=== PATIENT | male | born 1955 | race Caucasian/White ===

== ENCOUNTER 2019-09-11 10:16 | Emergency (ER) | payer BC ==
[~2019-09-11] VITALS: Ht 188 cm; Wt 86.2 kg
--- OUTSIDE RECORDS SUMMARY | ~2019-09-11 | XMS | Encounter Summary ---
Demographics + + + | Address | [address] | | | [place] [address] | + + + | Home Phone | | + + + | Preferred Language | Unknown | + + + | Marital Status | Single | + + + | Taoism Affiliation | Unknown | + + + | Race | Unknown | + + + | Ethnic Group | Other Race | + + + Author + + + | Author | [facility] | + + + | Organization | [facility] | + + + | Address | Unknown | + + + | Phone | Unavailable | + + + Support + + +---------+ + | Name | Relationship | Address | Phone | + + +---------+ + | None None | ECON | Unknown | Unavailable | + + +---------+ + Care Team Providers + +------+ + | Care Appliance Repair Technician Name | Role | Phone | + +------+ + PCP | Unavailable | + +------+ + Encounter Details +--------+ + + + + | Date | Type | Department | Care Team | Description | +--------+ + + + + | 06/17/ | Hospital | Dermatopathology | | | | 2017 | Encounter | [address] | | | | | | Mailcode: [id number] | | | | | | [place] [facility] | | | | | | and Healing, | | | | | | [address] | | | | | | [place], [place] | | | | | | [address] | | | | | | [phone] | | | +--------+ + + + + Social History + +-------+ +--------+------+ | Tobacco Use | Types | Packs/Day | Years | Date | | | | | Used | | + +-------+ +--------+------+ | Never Assessed | | | | | + +-------+ +--------+------+ + + + | Sex Assigned at | Date Recorded | | | | + + + | Not on file | | + + + + + + + | Job Start Date | Occupation | Industry | + + + + | Not on file | Not on file | Not on file | + + + + + + + + | Travel History | Travel Start | Travel End | + + + + + + | No recent travel history available. | + + documented as of this encounter Plan of Treatment Not on filedocumented as of this encounter Procedures + +--------+ + + + | Procedure Name | Priori | Date/Time | Associated Diagnosis | Comments | | | ty | | | | + +--------+ + + + | DERM PATHOLOGY | Routin | 06/17/2017 | Melanocytic nevi | Results for this | | | e | | of trunk | procedure are in the | | | | | | results section. | + +--------+ + + + documented in this encounter Results DERM PATHOLOGY (06/17/2017) + + + + + + | Component | Value | Ref Range | Performed | Pathologist | | | | | At | Signature | + + + + + + | DERMATOPATH | SOURCE OF SPECIMEN:A Rt | | [facility] | | | OLOGY(WET | mid abdomen, shave | | DERMATOPATH | | | MNT) | biopsy CLINICAL | | OLOGY | | | | DESCRIPTION:5 x 3 mm | | | | | | dark brown ovoid macule; | | | | | | r/o atypical nevus. | | | | | | GROSS | | | | | | DESCRIPTION:Received in | | | | | | formalin is a specimen | | | | | | labeled Darin Cramer:A: | | | | | | Specimen is labeled "R | | | | | | mid abdomen" and | | | | | | consists of an irregular | | | | | | shaveof papular patchy | | | | | | qfpke-jcr-wecao-black | | | | | | skin, [id number]. The | | | | | | surgical marginis inked | | | | | | blue; the tissue is | | | | | | bisected, and entirely | | | | | | submitted in cassetteA1. | | | | | | MICROSCOPIC | | | | | | DESCRIPTION:There is a | | | | | | moderately broad, mostly | | | | | | well-circumscribed, | | | | | | predominantlyfunctional | | | | | | melanocytic neoplasm | | | | | | characterized by round | | | | | | to oval nests andsingle | | | | | | melanocytes distributed | | | | | | primarily along the | | | | | | basal layer. Most | | | | | | ofthe melanocytic nuclei | | | | | | are round to oval, and | | | | | | the cells contain | | | | | | amphophiliccytoplasm | | | | | | with melanin. | | | | | | DIAGNOSIS:MELANOCYTIC | | | | | | NEVUS, JUNCTIONAL TYPE. | | | | | | NOTE: The nevus | | | | | | appears to be excised in | | | | | | these sections. | | | | | | KPW:jb06/19/17 My | | | | | | electronic signature | | | | | | indicates that I have | | | | | | personally reviewed | | | | | | alldiagnostic slides, | | | | | | the gross and/or | | | | | | microscopic portion of | | | | | | thisreport and | | | | | | formulated the final | | | | | | diagnosis. | | | | | | Rendering Diagnostician: | | | | | | Harlan Fontanez | | | | | | PatricaPathologistElectroni | | | | | | levy Signed 06/19/2017 | | | | | | 6:05PM | | | | + + + + + + + + | Specimen | + + | | + + + + + | Narrative | Performed At | + + + | | | + + + + + + + + | Performing | Address | City/State/Zipcode | Phone Number | | Organization | | | | + + + + + | [facility] | [address] | [place] [address] | | | DERMATOPATHOLOGY | [address] | | | + + + + + documented in this encounter Visit Diagnoses + + | Diagnosis | + + | Melanocytic nevi of trunk Benign neoplasm of skin of trunk, except scrotum | + + documented in this encounter
--- OUTSIDE RECORDS SUMMARY | ~2019-09-11 | XMS | Encounter Summary ---
Demographics + + + | Address | [address] | | | [place] [address] | + + + | Home Phone | | + + + | Preferred Language | Unknown | + + + | Marital Status | Single | + + + | Yazidism Affiliation | Unknown | + + + | Race | Unknown | + + + | Ethnic Group | Other Race | + + + Author + + + | Author | [facility] | + + + | Organization | [facility] | + + + | Address | Unknown | + + + | Phone | Unavailable | + + + Support + + +---------+ + | Name | Relationship | Address | Phone | + + +---------+ + | None None | ECON | Unknown | Unavailable | + + +---------+ + Care Team Providers + +------+ + | Care Rug Frame Mounter Name | Role | Phone | + +------+ + PCP | Unavailable | + +------+ + Encounter Details +--------+ + + + + | Date | Type | Department | Care Team | Description | +--------+ + + + + | 10/31/ | Ancillary | [facility] | | | | 2007 | Registratio | Practice [address] | | | | | n | [facility] | | | | | | [place] [address] | | | | | | [phone] | | | +--------+ + + + [...] Not on filedocumented as of this encounter Visit Diagnoses Not on filedocumented in this encounter"
--- OUTSIDE RECORDS SUMMARY | ~2019-09-11 | XMS | Encounter Summary ---
Demographics + + + | Address | [address] | | | [place] [address] | + + + | Home Phone | | + + + | Preferred Language | Unknown | + + + | Marital Status | Single | + + + | Episcopalian Affiliation | Unknown | + + + | Race | Unknown | + + + | Ethnic Group | Other Race | + + + Author + + + | Author | [facility] | + + + | Organization | [facility] | + + + | Address | Unknown | + + + | Phone | Unavailable | + + + Support + + +---------+ + | Name | Relationship | Address | Phone | + + +---------+ + | None None | ECON | Unknown | Unavailable | + + +---------+ + Care Team Providers + +------+ + | Care Pillowcase Maker Name | Role | Phone | + +------+ + PCP | Unavailable | + +------+ + Encounter Details +--------+ + + + + | Date | Type | Department | Care Team | Description | +--------+ + + + + | 10/20/ | Results | Registration [id number] | Other, Faculty | | | 2007 | Only | [address] | [phone] | | | | | Rd Mailcode: [address] | | | | | | [place], [place] | | | | | | [address] | | | | | | [phone] | | | +--------+ + + + [...] | + +--------+ + + + | DERMATOPATHOLOGY(WET | Routin | 11/12/2007 | | Results for this | | [facility]) | e | | | procedure are in the | | | | | | results section. | + +--------+ + + + | DERMATOPATHOLOGY(CON | Routin | 10/20/2007 | | Results for this | | SULT) | e | | | procedure are in the | | | | | | results section. | + +--------+ + + + documented in this encounter Results DERMATOPATHOLOGY(WET [facility]) (11/12/2007) + + + + + + | Component | Value | Ref Range | Performed | Pathologist | | | | | At | Signature | + + + + + + | DERMATOPATH | SOURCE OF SPECIMEN:A | | | | | OLOGY(WET | FIRST TISSUE LEVEL IV | | | | | MNT) | [id number] CLINICAL | | | | | | DESCRIPTION:Excision, | | | | | | rt. abdomen; | | | | | | reddish-brown hirsute | | | | | | papule- traumatized | | | | | | duringrecent vacation; | | | | | | atypical compound | | | | | | melanocytic nevus. GROSS | | | | | | DESCRIPTION:Rt. | | | | | | abdomen, ellipse 1.6 x | | | | | | 0.7 x 0.6 cm, suture at | | | | | | one end, no | | | | | | designationgiven. | | | | | | Suture placed at | | | | | | 12:00. 12:00-6:00 | | | | | | inked black, 6:00-12:00 | | | | | | inkedgreen. Six | | | | | | segments. MICROSCOPIC | | | | | | DESCRIPTION:There is a | | | | | | scar in the upper dermis | | | | | | deep to which are cords | | | | | | and strands | | | | | | ofmelanocytes with small | | | | | | uniform nuclei filling | | | | | | the papillary dermis | | | | | | andextending to the mid | | | | | | reticular dermis. | | | | | | There is also an | | | | | | occasional nest | | | | | | ofmelanocytes along the | | | | | | epidermal basal layer. | | | | | | DIAGNOSIS:RESIDUAL | | | | | | MELANOCYTIC NEVUS, | | | | | | COMPOUND TYPE WITH | | | | | | SCAR.NOTE: In this | | | | | | excisional specimen, the | | | | | | findings are consonant | | | | | | with COMPOUNDNEVUS which | | | | | | appears to be | | | | | | completely excised. | | | | | | SILVER/jyi11/19/07Rendering | | | | | | Diagnostician: Kavin | | | | | | Nneka Fontanez Jr., | | | | | | Bei | | | | | | levy Signed 11/20/2007 | | | | + + + + + + + + | Specimen | + + | | + + + + + | Narrative | Performed At | + + + | Ordered by Jesus Newton | | + + + + + + + + | Performing | Address | City/State/Zipcode | Phone Number | | Organization | | | | + + + + + | [facility] | [address], [address] | [place] [address] | | | DERMATOPATHOLOGY | [address] | | | + + + + + DERMATOPATHOLOGY(CONSULT) (10/20/2007) + + + + + + | Component | Value | Ref Range | Performed | Pathologist | | | | | At | Signature | + + + + + + | DERMATOPATH | SOURCE OF SPECIMEN:A | | | | | (CONSULT) | CONSULTATION CLINICAL | | | | | | DESCRIPTION:Rt Aubrey. | | | | | | abdomen; banal appearing | | | | | | pigmented papule; | | | | | | ?nevus with | | | | | | atypicalfeatures vs | | | | | | melanoma Dear | | | | | | Je: Thank you | | | | | | for asking me to review | | | | | | Darin Cramer' right | | | | | | abdomen biopsy.As you | | | | | | described, there is a | | | | | | small papule containing | | | | | | a melanocytic | | | | | | neoplasmwhich is not | | | | | | entirely symmetrical. | | | | | | A few small nests as | | | | | | well as | | | | | | singlemelanocytes are | | | | | | present irregularly | | | | | | along the epidermal | | | | | | basal layer | | | | | | withoccasional | | | | | | melanocytes involving | | | | | | the spinous, granular | | | | | | and cornifiedlayers. | | | | | | The epidermal | | | | | | melanocytic nuclei are | | | | | | small to moderately | | | | | | large,some are mildly | | | | | | pleomorphic and many of | | | | | | the cells have abundant | | | | | | palestaining cytoplasm | | | | | | containing melanin, some | | | | | | of them with | | | | | | prominentdendrites. | | | | | | There is papillary | | | | | | fibrosis focally beneath | | | | | | the atypicalepidermal | | | | | | melanocytic | | | | | | proliferation. | | | | | | Finally, numerous | | | | | | cords and strandsof | | | | | | melanocytes with small, | | | | | | uniform nuclei fill the | | | | | | remainder of | | | | | | thepapillary dermis and | | | | | | extend to the specimen | | | | | | base. | | | | | | DIAGNOSIS:MELANOCYTIC | | | | | | NEVUS, COMPOUND TYPE | | | | | | WITH ATYPICAL FEATURES. | | | | | | The findings suggest a | | | | | | traumatized nevus | | | | | | resulting in fibrosis | | | | | | andrecurrent nevus | | | | | | change within the | | | | | | epidermis. Melanoma in | | | | | | situ evolvingwithin a | | | | | | pre-existing nevus is | | | | | | unlikely, given the | | | | | | confinement of | | | | | | theatypical melanocytic | | | | | | proliferation to the | | | | | | epidermis overlying the | | | | | | scarwithout lateral | | | | | | extension beyond it. | | | | | | Nonetheless, given the | | | | | | unconventionalfindings | | | | | | and extension of the | | | | | | neoplasm to the dermal | | | | | | surgical | | | | | | margins,additional | | | | | | treatment to insure its | | | | | | complete removal would | | | | | | be prudent. Thank you | | | | | | for referring this | | | | | | consultation.1 slide, | | | | | | returned to | | | | | | Je. | | | | | | CRW:mm10/28/07Rendering | | | | | | Diagnostician: Kavin | | | | | | Nneka Fontanez Jr., | | | | | | PatricaPathologistMarizai | | | | | | levy Signed 10/28/2007 | | | | + + + + + + + + | Specimen | + + | | + + + + + | Narrative | Performed At | + + + | Cathy Simons MD | | + + + + + + + + | Performing | Address | City/State/Zipcode | Phone Number | | Organization | | | | + + + + + | [facility] | [address], [address] | [place] [address] | | | DERMATOPATHOLOGY | [address] | | | + + + + + documented in this encounter Visit Diagnoses Not on filedocumented in this encounter"
--- OUTSIDE RECORDS SUMMARY | ~2019-09-11 | XMS | Encounter Summary ---
Demographics + + + | Address | [address] | | | [place] [address] | + + + | Home Phone | | + + + | Preferred Language | Unknown | + + + | Marital Status | | + + + | Mandaen Affiliation | Unknown | + + + | Race | Unknown | + + + | Ethnic Group | Unknown | + + + Author + + + | Author | [facility] | | | and [place] | + + + | Organization | [facility] | | | and [place] | + + + | Address | Unknown | + + + | Phone | Unavailable | + + + Support + + +---------+ + | Name | Relationship | Address | Phone | + + +---------+ + | Donadl Cramer | ECON | Unknown | | + + +---------+ + | Brenda Marx | ECON | Unknown | | + + +---------+ + Care Team Providers + +------+ + | Care Shrub Grower Name | Role | Phone | + +------+ + | Dagoberto Villeda MD | PCP | | + +------+ + Encounter Details +--------+ + + + + | Date | Type | Department | Care Team | Description | +--------+ + + + + | 03/23/ | Abstract | [facility] | Hank Reid MD | | | 2014 | | NEUROSURGERY [address] | [address] | | | | | [address] | [place] [address] | | | | | [place], [place] | [phone] | | | | | [address] | | | | | | [phone] | | | +--------+ + + + + Social History + +-------+ +--------+------+ | Tobacco Use | Types | Packs/Day | Years | Date | | | | | Used | | + +-------+ +--------+------+ | Never Smoker | | | | | + +-------+ +--------+------+ + +---+---+---+ | Smokeless Tobacco: | | | | | Never Used | | | | + +---+---+---+ + + +---------+ + | Alcohol Use | Drinks/Week | oz/Week | Comments | + + +---------+ + | Yes | 0 Standard drinks | 0.0 | | | | or equivalent | | | + + +---------+ + + + + | Sex Assigned at [...]
--- OUTSIDE RECORDS SUMMARY | ~2019-09-11 | XMS | Encounter Summary ---
Demographics + + + | Address | [address] | | | [place] [address] | + + + | Home Phone | | + + + | Preferred Language | Unknown | + + + | Marital Status | Single | + + + | Jain Affiliation | Unknown | + + + | Race | Unknown | + + + | Ethnic Group | Other Race | + + + Author + + + | Author | [facility] | + + + | Organization | [facility] | + + + | Address | Unknown | + + + | Phone | Unavailable | + + + Support + + +---------+ + | Name | Relationship | Address | Phone | + + +---------+ + | None None | ECON | Unknown | Unavailable | + + +---------+ + Care Team Providers + +------+ + | Care Senior Bookkeeper Name | Role | Phone | + +------+ + PCP | Unavailable | + +------+ + Encounter Details +--------+ + + + + | Date | Type | Department | Care Team | Description | +--------+ + + + + | 03/19/ | Documentati | NON-[facility] | Unknown . | | | 2019 | on | Department | | | +--------+ + + + [...]
--- OUTSIDE RECORDS SUMMARY | ~2019-09-11 | XMS | Encounter Summary ---
Demographics + + + | Address | [address] | | | [place] [address] | + + + | Home Phone | | + + + | Preferred Language | Unknown | + + + | Marital Status | | + + + | Church Affiliation | Unknown | + + + | Race | Unknown | + + + | Ethnic Group | Unknown | + + + Author + + + | Author | [facility] | | | and [place] | + + + | Organization | [facility] | | | and [place] | + + + | Address | Unknown | + + + | Phone | Unavailable | + + + Support + + +---------+ + | Name | Relationship | Address | Phone | + + +---------+ + | Donald Cramer | ECON | Unknown | | + + +---------+ + | Brenda Vega ECON | Unknown | | + + +---------+ + Care Team Providers + +------+ + | Care Recoating Machine Operator Name | Role | Phone | + +------+ + | Dagoberto Villeda MD | PCP | | + +------+ + Reason for Referral Evaluate & Treat (Routine) +--------+ + + + + + | Status | Reason | Specialty | Diagnoses / | Referred By | Referred To | | | | | Procedures | Contact | Contact | +--------+ + + + + + | Closed | Specialty | Physical | Diagnoses | Hank Reid | | | | Services | Therapy | Lumbar | MD [address] | | | | Required | | scoliosis | [address] | | | | | | Degenerative | [place], | | | | | | disc | [place] [address] | | | | | | disease, | Phone: | | | | | | lumbar S/P | [phone] | | | | | | lumbar | Fax: | | | | | | laminectomy | [phone] | | | | | | Facet | | | | | | | arthropathy, | | | | | | | lumbar | | | | | | | Foraminal | | | | | | | stenosis of | | | | | | | lumbar | | | | | | | region | | | +--------+ + + + + + + + | Scheduling Instructions | + + | [facility] in [place] | + + Reason for Visit + + + | Reason | Comments | + + + | New Patient | Back Pain | + + + Evaluate & Treat (Routine) +--------+--------+ + + + + | Status | Reason | Specialty | Diagnoses / | Referred By | Referred To | | | | | Procedures | Contact | Contact | +--------+--------+ + + + + | Closed | | Neurosurgery | Diagnoses | [place], | Hank Reid | | | | | Low back | Dagoberto | MD [address] | | | | | pain | MD [address] | | | | | Procedures | [address] | [place], [place] | | | | | [place] OFFICE | [address] | [address] | | | | | CONSULTATION | [place], | Phone: | | | | | NEW/ESTAB | [place] | [phone] | | | | | PATIENT 61 | [address] | Fax: | | | | | MIN | Phone: | [phone] | | | | | | [phone] | | | | | | | Fax: | | | | | | | [phone] | | +--------+--------+ + + + + Encounter Details +--------+---------+ + + + | Date | Type | Department | Care Team | Description | +--------+---------+ + + + | 04/22/ | Office | [facility] | Hank Reid MD | Lumbar scoliosis | | 2015 | Visit | NEUROSURGERY [address] | [address] | (Primary Dx); | | | | [address] | [place] [address] | Degenerative disc | | | | [place] | [phone] | disease, lumbar; S/P | | | | [address] | | lumbar laminectomy; | | | | [phone] | | Facet arthropathy, | | | | | | lumbar; Foraminal | | | | | | stenosis of lumbar | | | | | | region | +--------+---------+ + + + Social History + +-------+ [...] | 0 Standard drinks | 0.0 | Occasionally | | | or equivalent | | [...] + + documented as of this encounter Last Filed Vital Signs + + + + + | Vital Sign | Reading | Time Taken | Comments | + + + + + | Blood Pressure | 115/69 | 04/22/2015 9:44 AM | | | | | PDT | | + + + + + | Pulse | 71 | 04/22/2015 9:44 AM | | | | | PDT | | + + + + + | Temperature | - | - | | + + + + + | Respiratory Rate | 16 | 04/22/2015 9:44 AM | | | | | PDT | | + + + + + | Oxygen Saturation | - | - | | + + + + + | Inhaled Oxygen | - | - | | | Concentration | | | | + + + + + | Weight | 83.9 kg (185 lb) | 04/22/2015 9:44 AM | | | | | PDT | | + + + + + | Height | 188 cm (6' 2") | 04/22/2015 9:44 AM | | | | | PDT | | + + + + + | Body Mass Index | 23.75 | 04/22/2015 9:44 AM | | | | | PDT | | + + + + + documented in this encounter Progress Notes aHnk Ried MD - 04/22/2015 9:53 AM PDTFormatting of this note might be different from vishal reyes. Hank Reid MD [address] [place] [address], [address] [place] [address] FAX: NEUROSURGERY HISTORY AND PHYSICAL EXAMINATION CHIEF COMPLAINT: Chief Complaint Patient presents with New Patient Back Pain HISTORY OF PRESENT ILLNESS: The patient is a 59 y.o. male with the complaint of back sympt oms that began years prior. The patient has a history of prior laminectomy [address] Parks for a disc herniation He did well for many years but has noticed increasing breanna k pain without radiculopathy. The symptoms have been gradually worsening. The past year lowe s been the worst. He has 5-10 days a month with 7-8 / 10 back pain. It is in the lowest po rtion of his back. He rates the pain as none today. The symptoms are intermittent, frequent. He describes th e pain as aching, sharp and throbbing. He has no leg numbness or pain. The patient does not report any change in bowel or bladder function recently. His symptoms improve with rest. His symptoms worsen with strenuous exertion. He has tried self directed PT and inversion. PAST MEDICAL HISTORY: Past Medical History Diagnosis Date Medical history reviewed with no changes Reviewed 04/22/15 cdm PAST SURGICAL HISTORY: Past Surgical History Procedure Laterality Date Ankle surgery Right a long time ago CURRENT MEDICATIONS: Current Outpatient Prescriptions Medication Sig Dispense Refill meloxicam (MOBIC) 7.5 mg tablet Take 1 tablet by mouth Twice daily as needed for Pain. 60 tablet 3 No current facility-administered medications for this visit. ALLERGIES: No Known Allergies SOCIAL HISTORY: The patient reports that he has never smoked. He has never used smokeless tobacco. He repo rts that he drinks alcohol. He reports that he does not use illicit drugs. FAMILY HISTORY: Family History Problem Relation Age of Onset Diabetes Father Cancer Mother Heart disease Mother REVIEW OF SYSTEMS GENERALLY: No fever, no night sweats, no anemia, no fatigue, no recent profound weight ch anges. EYES: No eye problems, + use of corrective lenses, no eye injury, no double vision, no bli ndness. EARS, NOSE, AND THROAT: No changes in taste or smell, no hearing difficulty, no ringing in the ears, no ear drainage, no dizziness, no voice changes, no difficulty swallowing, no sig nificant snoring, no sleep apnea, no sinus problems, no major dental work. NEUROLOGICALLY: Please see the review of systems discussed above in the history of present illness. In addition, the patient has numbness/pain of legs, headaches. PSYCHIATRIC: No depression, no sleep disorders, no anxiety, no bipolar disorder, no psycho tic episodes. CARDIOVASCULAR: No heart attacks, no heart murmur, no heart fluttering, no chest pain, no ankle swelling. LUNG DISEASE: No shortness of breath, no cough, no tuberculosis, no bloody cough, no asth ma, no emphysema/COPD. GASTROINTESTINAL: No bowel disease, no nausea or vomiting, no rectal bleeding, no constipa tion, no stool incontinence, no liver disease, no gallbladder disease, no abdominal pain, no ulcers. KIDNEY DISEASE: No urinary frequency, no painful or difficult urination, no incontinence. ENDOCRINE: No diabetes, no thyroid disease, no osteopenia or osteoporosis, no breast drain age. SKIN: No breast lumps, no skin changes, no rashes, no itches. HEMATOLOGIC/LYMPHATIC: No enlarged lymph nodes, no easy or unusual bleeding, no personal h istory of cancer. RHEUMATOLOGIC: No joint arthritis, no rheumatoid arthritis. PHYSICAL EXAMINATION: Blood pressure 115/69, pulse 71, resp. rate 16, height 1.88 m (6' 2"), weight 83.915 kg (18 5 lb). Body mass index is 23.74 kg/(m^2). GENERAL: Darin Cramer is in no acute distress with unlabored respirations. The patient does not appear uncomfortable throughout the exam today. HEENT: HEAD/FACE: EYES: EARS: NASOPHARNYX: OROPHARNYX: Normocephalic and atraumatic. There are no areas of recent trauma. Normal sclerae without icterus. No drainage or tenderness. Clear without drainage. Clear without erythema. NECK (ANTERIOR): Supple and without palpable masses. CHEST: Clear to ausculation without crackles or wheeze. HEART: Regular rate and rhythm without murmurs. ABDOMEN: Soft, non-tender, non-distended, and without palpable masses. The patient is notob dominik. SPINE: There is no tenderness in the midline of the cervical or thoracic spine. There is m ajor palpable deformity of the spine. The lumbar spine shows there is no tenderness in the midline of the L1, L2, L3, L4, L5, S1 levels. He has a small midline scar. EXTREMITIES: No cyanosis, clubbing, or edema. Distal pulses are palpable. NEUROLOGICAL EXAM: MENTAL STATUS: The patient is awake, alert, and oriented. He follows simple and complex commands. His speech is fluent, he comprehends speech well, and he repeats well. He has no apparent deficits with short or terminal makeup operator memory. CRANIAL NERVES: II: Acuity is intact. Desai are full to confrontation. III, IV, : The pupils are reactive. Extraocular movements are intact. No ptosis is note d. V: Facial sensation is intact and symmetric. VII: Facial movements are symmetric. VIII: Hearing is intact bilaterally. IX, X: The uvula and palate move appropriately. XI: Shrug is equal bilaterally. XII: Tongue protrusion is midline. MOTOR EXAM: (5 IS NORMAL) * Indicates pain limited MUSCLE/ MOVEMENT: RIGHT LEFT Deltoids 5 5 Biceps 5 5 Triceps 5 5 Wrist Flexion 5 5 Wrist Extension 5 5 Median Intrinsics 5 5 Ulnar Intrinsics 5 5 Damascener Strength 5 5 Hip Flexion 5 5 Hip Extension 5 5 Knee Flexion 5 5 Knee Extension 5 5 Dorsiflexion 5 5 Extensor Hallicus Longus 5 5 Plantarflexion 5 5 SENSORY EXAM: Sensory exam shows no diminished sensation to light touch or pain throughout the upper and lower extremities. REFLEXES: (2 OR 2+ IS NORMAL) REFLEX: RIGHT LEFT BICEPS 2 2 BRACHIORADIALIS 2 2 TRICEPS 2 2 PATELLAR 2 2 ACHILLES 2 1 ROMERO'S ABSENT ABSENT PLANTAR DOWNGOING DOWNGOING GAIT: Gait is steady. RADIOGRAPHIC REVIEW: The patient's imaging was reviewed in detail with the patient today during the visit. The MRI from 2014 shows L1-S1 DDD and spondylosis with scoliosis and facet arthropathy. His wor st segment is L5-S1. Lumbar x-rays show scoliosis without a major instability. ASSESSMENT: NEUROSURGICAL DIAGNOSES: Encounter Diagnoses Name Primary? Lumbar scoliosis Yes Degenerative disc disease, lumbar S/P lumbar laminectomy Facet arthropathy, lumbar Foraminal stenosis of lumbar region GENERAL DIAGNOSES: Past Medical History Diagnosis Date Medical history reviewed with no changes Reviewed 04/22/15 [facility] PLAN: Darin Cramer presented today, and it was a pleasure seeing this patient and assessing h is problems. The patient has back pain intermittently that has been increasing. The pain c an be very intense. I had a lengthy discussion with the patient about his options for care including surgical a nd non-surgical options. I recommended he increase his non-operative care interventions wit h PT and NSAIDS. If it continued to worsen, I would advise a L5-S1 facet injection bilaterally. If he remained refractory, I would hope to be able to do a focused surgery. ELECTRONICALLY SIGNED BY: Hank Reid MD, 04/22/2015 10:48 documented in this encou nter Plan of Treatment + + +--------+ + + | Name | Type | Priori | Associated Diagnoses | Order Schedule | | | | ty | | | + + +--------+ + + | OUTPATIENT PT | Outpatient | Routin | Lumbar scoliosis | Ordered: 04/22/2015 | | EXTERNAL | Referral | e | Degenerative disc | | | | | | disease, lumbar S/P | | | | | | lumbar laminectomy | | | | | | Facet arthropathy, | | | | | | lumbar Foraminal | | | | | | stenosis of lumbar | | | | | | region | | + + +--------+ + + documented as of this encounter Visit Diagnoses + + | Diagnosis | + + | Lumbar scoliosis - Primary Scoliosis (and kyphoscoliosis), idiopathic | + + | Degenerative disc disease, lumbar Degeneration of lumbar or lumbosacral | | intervertebral disc | + + | S/P lumbar laminectomy | + + | Facet arthropathy, lumbar Lumbosacral spondylosis without myelopathy | + + | Foraminal stenosis of lumbar region Spinal stenosis, lumbar region, without | | neurogenic claudication | + + documented in this encounter
--- OUTSIDE RECORDS SUMMARY | ~2019-09-11 | XMS | Encounter Summary ---
Demographics + + + | Address | [address] | | | [place] [address] | + + + | Home Phone | | + + + | Preferred Language | Unknown | + + + | Marital Status | Single | + + + | Zoroastrianism Affiliation | Unknown | + + + | Race | Unknown | + + + | Ethnic Group | Other Race | + + + Author + + + | Author | [facility] | + + + | Organization | [facility] | + + + | Address | Unknown | + + + | Phone | Unavailable | + + + Support + + +---------+ + | Name | Relationship | Address | Phone | + + +---------+ + | None None | ECON | Unknown | Unavailable | + + +---------+ + Care Team Providers + +------+ + | Care Civil Engineering Intern Name | Role | Phone | + [...]
--- OUTSIDE RECORDS SUMMARY | ~2019-09-11 | XMS | Encounter Summary ---
Demographics + + + | Address | [address] | | | [place] [address] | + + + | Home Phone | | + + + | Preferred Language | Unknown | + + + | Marital Status | Single | + + + | Hoahaoism Affiliation | Unknown | + + + | Race | Unknown | + + + | Ethnic Group | Other Race | + + + Author + + + | Author | [facility] | + + + | Organization | [facility] | + + + | Address | Unknown | + + + | Phone | Unavailable | + + + Support + + +---------+ + | Name | Relationship | Address | Phone | + + +---------+ + | None None | ECON | Unknown | Unavailable | + + +---------+ + Care Team Providers + +------+ + | Care Water Proofer Name | Role | Phone | + +------+ + PCP | Unavailable | + +------+ + Encounter Details +--------+ + + + + | Date | Type | Department | Care Team | Description | +--------+ + + + + | 11/25/ | Ancillary | [facility] | | | | 2007 | Registratio | Practice [address] | | | | | n | [facility] | | | | | | [place] [address] | | | | | | [phone] | | | +--------+ + + + [...]
--- OUTSIDE RECORDS SUMMARY | ~2019-09-11 | XMS | Clinical Summary ---
Demographics + + + | Address | [address] | | | [place] [address] | + + + | Home Phone | | + + + | Preferred Language | Unknown | + + + | Marital Status | Single | + + + | Jewish Affiliation | Unknown | + + + | Race | Unknown | + + + | Ethnic Group | Other Race | + + + Author + + + | Author | [facility] | + + + | Organization | [facility] | + + + | Address | Unknown | + + + | Phone | Unavailable | + + + Support + + +---------+ + | Name | Relationship | Address | Phone | + + +---------+ + | None None | ECON | Unknown | Unavailable | + + +---------+ + Care Team Providers + +------+ + | Care Crystal Inspector Name | Role | Phone | + +------+ + PCP | Unavailable | + +------+ + Source Comments EDSON is fully live on both [facility] and [facility]Patient.[facility] Allergies Not on File Medications Not on file Active Problems Not on file Social History + +-------+ +--------+------+ | Tobacco [...] recent travel history available. | + + Last Filed Vital Signs Not on file Plan of Treatment + + + + + | Health Maintenance | Due Date | Last Done | Comments | + + + + + | Influenza (Flu) | | | | | vaccination (#1) | 9 | | | + + + + + | Pneumococcal | Aged Out | | No longer eligible | | vaccination | | | based on patient's | | | | | age to complete this | | | | | topic | + + + + + Results Not on filefrom Last 3 Months Insurance + +--------+ +--------+ + +------+ | Payer | Benefi | Subscriber | Effect | Phone | Address | Type | | | t Plan | ID | michael | | | | | | / | | Dates | | | | | | Group | | | | | | + +--------+ +--------+ + +------+ | [place] | BLUE | [phone] | Effect | [phone] | [address] | PPO | | | CROSS | | michael | 8 | [address] | | | | [place] | | for | | [place], | | | | L | | all | | [place] [address] | | | | | | dates | | | | + +--------+ +--------+ + +------+ + +--------+ +--------+ + + | Guarantor Name | Accoun | Relation to | Date | Phone | Billing Address | | | t Type | Patient | of | | | | | | | | | | + +--------+ +--------+ + + | Darin Cramer | Person | Self [birth year] | [address] | | | al/Fam | | 1955 | [phone] | [place] [address] | | | rosa | | | 2 (Home) | | + +--------+ +--------+ + +"
--- OUTSIDE RECORDS SUMMARY | ~2019-09-11 | XMS | Encounter Summary ---
Demographics + + + | Address | [address] | | | [place] [address] | + + + | Home Phone | | + + + | Preferred Language | Unknown | + + + | Marital Status | Single | + + + | Presybeterian Affiliation | Unknown | + + + | Race | Unknown | + + + | Ethnic Group | Other Race | + + + Author + + + | Author | [facility] | + + + | Organization | [facility] | + + + | Address | Unknown | + + + | Phone | Unavailable | + + + Support + + +---------+ + | Name | Relationship | Address | Phone | + + +---------+ + | None None | ECON | Unknown | Unavailable | + + +---------+ + Care Team Providers + +------+ + | Care Roll Up Guider Operator Name | Role | Phone | + +------+ + PCP | Unavailable | + +------+ + Encounter Details +--------+ + + + + | Date | Type | Department | Care Team | Description | +--------+ + + + + | 10/31/ | Ancillary | [facility] | | | | 2007 | Registratio | Practice [address] | | | | | n | [facility] | | | | | | [place] [address] | | | | | | [phone] | | | +--------+ + + + [...]
--- OUTSIDE RECORDS SUMMARY | ~2019-09-11 | XMS | Encounter Summary ---
Demographics + + + | Address | [address] | | | [place] [address] | + + + | Home Phone | | + + + | Preferred Language | Unknown | + + + | Marital Status | | + + + | [facility] Affiliation | Unknown | + + + | Race | Unknown | + + + | Ethnic Group | Unknown | + + + Author + + + | Author | [facility] | | | and [place] | + + + | Organization | [facility] | | | [...] Team Providers + +------+ + | Care School Age Program Associate Name | Role | Phone | + +------+ + | Dagoberto Villeda MD | PCP | | + +------+ + Encounter Details +--------+ + + + + | Date | Type | Department | Care Team | Description | +--------+ + + + + | 04/22/ | Hospital | [facility] | Hank Reid MD | Back pain, | | 2015 | Encounter | MED CTR XRAY [address] | unspecified location | | | | [place] | [place] [address] | | | | | [place] [address] | [phone] | | | | | [phone] | | | +--------+ + + + [...] + + documented as of this encounter Medications at Time of Discharge + + + +---------+ + + | Medication | Sig | Dispensed | Refills | Start | End Date | | | | | | Date | | + + + +---------+ + + | meloxicam (MOBIC) | Take 1 tablet by | 60 | 3 | 04/22/20 | | | 7.5 mg tablet | mouth Twice daily | tablet | | 15 | | | | as needed for Pain. | | | | | + + + +---------+ + + documented as of this encounter Plan of Treatment Not on filedocumented as of this encounter Procedures + +--------+ + + + | Procedure Name | Priori | Date/Time | Associated Diagnosis | Comments | | | ty | | | | + +--------+ + + + | XR LUMBAR SPINE 4 + | Routin | 04/22/2015 | Back pain, | Results for this | | VW | e | 8:19 AM | unspecified location | procedure are in the | | | | PDT | | results section. | + +--------+ + + + documented in this encounter Results XR Lumbar Spine 4 + Vw (04/22/2015 8:19 AM PDT) + + | Specimen | + + | | + + + + + | Narrative | Performed At | + + + | EXAM: XR LUMBAR SPINE 4 + VW dated 04/22/2015 8:00 AM | [facility] | | HISTORY:Back pain COMPARISON: Outside MRI from January 18, 2015. | [facility] | | FINDINGS:4 views of the lumbar spine. Dextroconvex scoliosis with | [facility] | | the apex at L3. Slight right lateral listhesis of L3. 5 | - IMAGING | | nonrib-bearing lumbar-type vertebral bodies. In the neutral lateral | | | position there is retrolisthesis of L1, L2, and more significantly | | | L3. There is moderate disc narrowing at L3-L4. There is diffuse | | | facet arthrosis. No abnormal translation with flexion-extension. | | | The soft tissues are unremarkable. IMPRESSION - Scoliosis | | | with associated spondylosis. Spondylolisthesis of L1, L2, and L3. | | | Dictated and Signed by: Shoaib Verdin MD Electronically | | | signed: 04/22/2015 8:50 AM | | + + + + + | Procedure Note | + + | Rashid, Rad Results In - 04/22/2015 8:53 AM PDT EXAM: XR LUMBAR SPINE 4 + VW dated | | 04/22/2015 8:00 AMHISTORY:Back painCOMPARISON: Outside MRI from January 18, 2015.FINDINGS:4 | | views of the lumbar spine. Dextroconvex scoliosis with the apex atL3. Slight right | | lateral listhesis of L3. 5 nonrib-bearing lumbar-typevertebral bodies. In the neutral | | lateral position there is retrolisthesis ofL1, L2, and more significantly L3. There is | | moderate disc narrowing at L3-L4. There is diffuse facet arthrosis. No abnormal | | translation withflexion-extension. The soft tissues are unremarkable.IMPRESSION | | -Scoliosis with associated spondylosis.Spondylolisthesis of L1, L2, and L3.Dictated and | | Signed by: Shoaib Verdin MD Electronically signed: 04/22/2015 8:50 AM | |L1, L2, and more significantly L3. There is moderate disc narrowing at L3-L4. | |There is diffuse facet arthrosis. No abnormal translation with | |flexion-extension. The soft tissues are unremarkable. | | | |IMPRESSION - | | | |Scoliosis with associated spondylosis. | | | |Spondylolisthesis of L1, L2, and L3. | | | |Dictated and Signed by: Shoaib Verdin MD | | Electronically signed: 04/22/2015 8:50 AM | + + + + + + + | Performing | Address | City/State/Zipcode | Phone Number | | Organization | | | | + + + + + | [facility] | [address] | [place] | [phone] | | [facility] | | [address] | | | - IMAGING | | | | + + + + + documented in this encounter Visit Diagnoses + + | Diagnosis | + + | Back pain, unspecified location | + + documented in this encounter"
--- OUTSIDE RECORDS SUMMARY | ~2019-09-11 | XMS | Clinical Summary ---
Demographics + + + | Address | [address] | | | [place] [address] | + + + | Home Phone | | + + + | Preferred Language | Unknown | + + + | Marital Status | Single | + + + | Yarsani Affiliation | Unknown | + + + [...] Team Providers + +------+ + | Care Oracle Iam Consultant Name | Role | Phone | + +------+ + PCP | Unavailable | + +------+ + Source Comments EDSON is fully live on both [facility] and [facility] InPatient.[facility] Allergies Not on File Medications Not on [...] | BLUE | [phone] | Effect | [phone] | [address] | PPO | | | CROSS | | michael | 8 | [address] | | | | [place] | | for | | [place], | | | | L | | all | | [place] [address] | | | | | | dates [...] | | al/Fam | | 1955 | [phone] | [place] [address] | | | rosa | | | 2 (Home) | | + +--------+ +--------+ + +"
--- OUTSIDE RECORDS SUMMARY | ~2019-09-11 | XMS | Encounter Summary ---
Demographics + + + | Address | [address] | | | [place] [address] | + + + | Home Phone | | + + + | Preferred Language | Unknown | + + + | Marital Status | Single | + + + | Tenriism Affiliation | Unknown | + + + | Race | Unknown | + + + | Ethnic Group | Other Race | + + + Author + + + | Author | [facility] | + + + | Organization | [facility] | + + + | Address | Unknown | + + + | Phone | Unavailable | + + + Support + + +---------+ + | Name | Relationship | Address | Phone | + + +---------+ + | None None | ECON | Unknown | Unavailable | + + +---------+ + Care Team Providers + +------+ + | Care Ortho/Prosthetic Aide Name | Role | Phone | + +------+ + PCP | Unavailable | + +------+ + Encounter Details +--------+ + + + + | Date | Type | Department | Care Team | Description | +--------+ + + + + | 10/20/ | Results | Registration [address] | Other, Faculty | | | 2007 | Only | [address] | [phone] | | | | | Rd Mailcode: [id number] | | | | | | [place], [place] | | | | | | [address] | | | | | | [phone] | | | +--------+ + + + [...] | | | | | MNT) | [address] CLINICAL | | | | | | [...] [facility] | Mail[address], [address] | [place] [address] | | | DERMATOPATHOLOGY | [address] [...] EDSON | [address], [address] | [place] [address] | | | DERMATOPATHOLOGY | [address] | | | + + + + + documented in this encounter Visit Diagnoses Not on filedocumented in this encounter"
--- OUTSIDE RECORDS SUMMARY | ~2019-09-11 | XMS | Encounter Summary ---
Demographics + + + | Address | [address] | | | [place] [address] | + + + | Home Phone [...] Author + + + | Author | [facility] | + + + | Organization | [facility] | + + + | Address | Unknown | + + + | Phone | Unavailable | + + + Support + + +---------+ + | Name | Relationship | Address | Phone | + + +---------+ + | None None | ECON | Unknown | Unavailable | + + +---------+ + Care Team Providers + +------+ + | Care Chief Talent Officer Name | Role | Phone | + [...] [id number] | | | | | | [place] [facility] | | | | | | and Healing, | | | | | | [address] | | | | | | [place], [place] | | | | | | [address] | | | | | | [phone] | | | +--------+ + + + [...] patchy | | | | | | [id number] | | | | | | skin, [id number]. The | | | | | | [...] + + | EDSON | [address], [address] | [place] [address] | | | DERMATOPATHOLOGY | [address] | | | + + + + + documented in this encounter Visit Diagnoses + + | Diagnosis | + + | Melanocytic nevi of trunk Benign neoplasm of skin of trunk, except scrotum | + + documented in this encounter
--- OUTSIDE RECORDS SUMMARY | ~2019-09-11 | XMS | Encounter Summary ---
Demographics + + + | Address | [address] | | | [place] [address] | + + + | Home Phone | | + + + | Preferred Language | Unknown | + + + | Marital Status | | + + + | Sikhism Affiliation | Unknown | + + + | Race | Unknown | + + + | Ethnic Group | Unknown | + + + Author + + + | Author | [facility] | | | and [place] | + + + | Organization | [facility] | | | [...] Team Providers + +------+ + | Care Telephone Clerk Name | Role | Phone | + [...] | | [address] | [place] [address] | | | | | [place], [place] | [phone] | | | | | [address] | | | | | | [phone] | | | +--------+ + + + [...]
--- OUTSIDE RECORDS SUMMARY | ~2019-09-11 | XMS | Encounter Summary ---
Demographics + + + | Address | [address] [place] [address] | | | [place] [address] | + + + | Home Phone | | + + + | Preferred Language | Unknown | + + + | Marital Status | | + + + | Sabianism Affiliation | Unknown | + + + | Race | Unknown | + + + | Ethnic Group | Unknown | + + + Author + + + | Author | [facility] | | | and [place] | + + + | Organization | [facility] | | | and [...] Team Providers + +------+ + | Care Bsa/Aml Compliance Officer Name | Role | Phone | + +------+ + | Dagoberto Villeda MD | PCP | | + +------+ + Encounter Details +--------+ + + + + | Date | Type | Department | Care Team | Description | +--------+ + + + + | 04/22/ | Hospital | [facility] | Hank Reid MD | Back pain, | | 2015 | Encounter | MED CTR XRAY [address] | [address] | unspecified location | | | | [place] | [place] [address] | | | | | [place] [address] | [phone] | | | | | [phone] | | | +--------+ + + + [...] Outside MRI from January 18, 2015. | [facility] | | FINDINGS:4 views of the [...] ST. | [address] | [place] | [phone] | | [facility] | | [address] | | | - IMAGING | | | | + + + + + documented in this encounter Visit Diagnoses + + | Diagnosis | + + | Back pain, unspecified location | + + documented in this encounter"
--- OUTSIDE RECORDS SUMMARY | ~2019-09-11 | XMS | Encounter Summary ---
Demographics + + + | Address | [address] | | | [place] [address] | + + + | Home Phone | | + + + | Preferred Language | Unknown | + + + | Marital Status | | + + + | Episcopal Affiliation | Unknown | + + + | Race | Unknown | + + + | Ethnic Group | Unknown | + + + Author + + + | Author | [facility] | | | and [place] | + + + | Organization | [facility] | | | [...] Team Providers + +------+ + | Care Hand Method Lasting Machine Operator Name | Role | Phone [...] | | | | | Degenerative | [place], | | | | | | disc | [place] [address] | | | | | | disease, | Phone: | | | | | | lumbar S/P | [phone] | | | | | | lumbar | Fax: | | | | | | laminectomy | [phone] | | | | | | Facet [...] Instructions | + + | [facility] [place] | + + Reason for Visit + [...] | Procedures | [address] | [place], [place] | | | | | [place] OFFICE | [address] | [address] | | | | | CONSULTATION | [place], | Phone: | | | | | NEW/ESTAB | [place] | [phone] | | | | | PATIENT 61 | [address] | Fax: | | | | | MIN | Phone: | [phone] | | | | | | [phone] | | | | | | | Fax: | | | | | | | [phone] | | +--------+--------+ + + + + Encounter Details +--------+---------+ + + + | Date | Type | Department | Care Team | Description | +--------+---------+ + + + | 04/22/ | Office | [facility] | Hank Reid MD | Lumbar scoliosis | | 2015 | Visit | NEUROSURGERY [address] | [address] | (Primary Dx); | | | | [address] | [place] [address] | Degenerative disc | | | | [place] | [phone] | disease, lumbar; S/P | | | | [address] | | lumbar laminectomy; | | | | [phone] | | Facet arthropathy, | | | [...] + documented in this encounter Progress Notes Hank Reid MD - 04/22/2015 9:53 AM PDTFormatting of this note might be different from vishal reyes. Hank Reid MD [address] [place] [address], [address] [place] [address] FAX: NEUROSURGERY HISTORY AND PHYSICAL EXAMINATION CHIEF [...] has no apparent deficits with short or long term care social worker memory. CRANIAL NERVES: II: Acuity is intact. [...] Intrinsics 5 5 Ulnar Intrinsics 5 5 Production Utility Worker Strength 5 5 Hip Flexion 5 5 [...] history reviewed with no changes Reviewed 04/22/15 [facility] PLAN: Darin Cramer presented today, and it [...]
--- OUTSIDE RECORDS SUMMARY | ~2019-09-11 | XMS | Clinical Summary ---
Demographics + + + | Address | [address] | | | [place] [address] | + + + | Home Phone | | + + + | Preferred Language | Unknown | + + + | Marital Status | | + + + | Nondenominational Affiliation | Unknown | + + + | Race | Unknown | + + + | Ethnic Group | Unknown | + + + Author + + + | Author | [facility] | | | and [place] | + + + | Organization | [facility] | | | [...] Team Providers + +------+ + | Care Programming Specialist Name | Role | Phone | + +------+ + | Dagoberto Villeda MD | PCP | | + +------+ + Allergies No Known Allergies Medications + + + +---------+------+------+-------+ | Medication | Sig | Dispensed | Refills | Star | End | Statu | | | | | | t | Date | s | | | | | | Date | | | + + + +---------+------+------+-------+ | meloxicam (MOBIC) | Take 1 tablet by | 60 | 3 | 04/06 | | Activ | | 7.5 mg tablet | mouth Twice daily | tablet | | 04/25 | | e | | | as needed for Pain. | | | 15 | | | + + + +---------+------+------+-------+ Active Problems + + + | Problem | Noted Date | + + + | Lumbar scoliosis | 04/22/2015 | + + + | Degenerative disc disease, lumbar | 04/22/2015 | + + + | S/P lumbar laminectomy | 04/22/2015 | + + + | Facet arthropathy, lumbar | 04/22/2015 | + + + | Foraminal stenosis of lumbar region | 04/22/2015 | + + + Family History + + +------+ + | Medical History | Relation | Name | Comments | + + +------+ + | Diabetes | Father | | | + + +------+ + | Cancer | Mother | | | + + +------+ + | Heart disease | Mother | | | + + +------+ + + +------+ + + | Relation | Name | Status | Comments | + +------+ + + | Father | | | | + +------+ + + | Mother | | | | | | | (Age | | | | | 89) | | + +------+ + + Social History + +-------+ +--------+------+ [...] | + + Last Filed Vital Signs + + + [...] | | + + + + + Plan of Treatment + + + + + | Health Maintenance | Due Date | Last Done | Comments | + + + + + | Vaccine: | | | | | Dtap/Tdap/Td (1 - | 5 | | | | Tdap) | | | | + + + + + | Vaccine: Zoster (1 | | | | | of 2) | 6 | | | + + + + + | Vaccine: Influenza | | | | | (#1) | 9 | | | + + + + + Results Not on filefrom Last 3 Months Insurance + +--------+ +--------+ +---------+------+ | Payer | Benefi | Subscriber | Effect | Phone | Address | Type | | | t Plan | ID | michael | | | | | | / | | Dates | | | | | | Group | | | | | | + +--------+ +--------+ +---------+------+ | [employer] | HEALTH | [id number] | 04/06/19 | [phone] | | PPO | | | COMP | | 99-Pre | 7 | | | | | FIRST | | sent | | | | | | CHOICE | | | | | | + +--------+ +--------+ +---------+------+ + +--------+ +--------+ + + | Guarantor [...] | | al/Fam | | 1955 | [phone] | [place] | | | rosa | | | 2 (Home) | [phone] | + +--------+ +--------+ + + Advance Directives + + + + + | Type | Date Recorded | Patient | Explanation | | | | Coper Hand | | + + + + + | Power of | | | | | Radio Communication Coordinator | | | | + + + + + | Advance | 04/22/2015 7:59 | | | | Directive | AM | | | + + + + +
--- OUTSIDE RECORDS SUMMARY | ~2019-09-11 | XMS | Clinical Summary ---
Demographics + + + | Address | [address] | | | [place] [address] | + + + | Home Phone | | + + + | Preferred Language | Unknown | + + + | Marital Status | | + + + | Yazidism Affiliation | Unknown | + + + | Race | Unknown | + + + | Ethnic Group | Unknown | + + + Author + + + | Author | [facility] | | | and [place] | + + + | Organization | [facility] | | | and [...] Team Providers + +------+ + | Care Cultural Anthropology Professor Name | Role | Phone | + [...] +--------+ +---------+------+ | [employer] | HEALTH | [id number] | 04/06/19 | [phone] | | PPO [...] [place] | | | 2 (Home) | [phone] | + +--------+ +--------+ + + Advance Directives + + + + + | Type | Date Recorded | Patient | Explanation | | | | School Age Program Teacher | | + + + + + | Power of | | | | | Protective Signal Operations Supervisor | | | | + + + + + | Advance | 04/22/2015 7:59 | | | | Directive | AM | | | + + + + +
--- OUTSIDE RECORDS SUMMARY | ~2019-09-11 | XMS | Encounter Summary ---
Demographics + + + | Address | [address] | | | [place] [address] | + + + | Home Phone | | + + + | Preferred Language | Unknown | + + + | Marital Status | Single | + + + | Sikhism Affiliation | Unknown | + + + | Race | Unknown | + + + | Ethnic Group | Other Race | + + + Author + + + | Author | [facility] | + + + | Organization | [facility] | + + + | Address | Unknown | + + + | Phone | Unavailable | + + + Support + + +---------+ + | Name | Relationship | Address | Phone | + + +---------+ + | None None | ECON | Unknown | Unavailable | + + +---------+ + Care Team Providers + +------+ + | Care Associate Software Engineer Name | Role | Phone | + +------+ + PCP | Unavailable | + +------+ + Encounter Details +--------+ + + + + | Date | Type | Department | Care Team | Description | +--------+ + + + + | 11/25/ | Ancillary | [facility] | | | | 2007 | Registratio | Practice [address] | | | | | n | [facility] | | | | | | [place] [address] | | | | | | [phone] | | | +--------+ + + + [...]
[~2019-09-11 10:16] MED LIST: ASPIRIN325 MG PO; EXCEDRIN MIGRA1 EAC2 PO
[2019-09-11] MEDS ORDERED: MULTI VITAMIN1 EACH PO (10:37)
[2019-09-11] MEDS ORDERED: CYCLOBENZAPRINE10 MG PO (14:06)
== END 2019-09-11 14:27 | disposition home or self-care (01) ==
LOC: ED 10:16
DX: R10.31 Right lower quadrant pain (principal); R10.32 Left lower quadrant pain
CPT/HCPCS: 74176; 81001; 96372; 99284-25; J1885

== ENCOUNTER 2021-03-14 20:32 | Emergency (ER) | payer BC ==
[~2021-03-14] VITALS: Ht 188 cm; Wt 86.2 kg
[~2021-03-14 20:32] MED LIST changes: +CYCLOBENZAPRINE10 MG PO; +MULTI VITAMIN1 EACH PO
== END 2021-03-14 22:45 | disposition short-term general hospital (02) ==
LOC: ED 20:32
DX: S62.635A Displaced fracture of distal phalanx of left ring finger, initial encounter for closed fracture (principal); S62.623A Displaced fracture of middle phalanx of left middle finger, initial encounter for closed fracture; S62.631A Displaced fracture of distal phalanx of left index finger, initial encounter for closed fracture; S61.211A Laceration without foreign body of left index finger without damage to nail, initial encounter; S61.213A Laceration without foreign body of left middle finger without damage to nail, initial encounter; S61.214A Laceration without foreign body of right ring finger without damage to nail, initial encounter; W29.8XXA Contact with other powered hand tools and household machinery, initial encounter; Z20.822 Contact with and (suspected) exposure to COVID-19
CPT/HCPCS: 73130; 90471; 90715; 96374; 96375; 99284-25; C9803; J0690; J2270; J2405; U0003

== ENCOUNTER 2024-03-09 10:36 | Emergency (ER) | payer MEDICARE, OTHER ==
[~2024-03-09] VITALS: Ht 188 cm; Wt 84.0 kg
[2024-03-09] MEDS ORDERED: DIPHTH,PERTUSS(ACELL),TET VAC 0.5 ML SYRINGE IM ONE (13:15)
[2024-03-09] MEDS ORDERED: CEPHALEXIN500 MG PO (14:43)
[2024-03-09] MEDS ORDERED: HYDROCODON-ACE1 EA10 PO (14:43)
[2024-03-09 15:00] VITALS: BP 143/96
== END 2024-03-09 15:00 | disposition home or self-care (01) ==
LOC: ED 10:36
DX: S62.631B Displaced fracture of distal phalanx of left index finger, initial encounter for open fracture (principal); W27.0XXA Contact with workbench tool, initial encounter; Z79.899 Other long term (current) drug therapy
CPT/HCPCS: 73130; 90715

== ENCOUNTER 2024-08-26 06:00 | Day surgery (SDC) | payer MEDICARE, OTHER ==
[2024-08-24 09:30] VITALS: BP 123/76
[~2024-08-26] VITALS: Ht 188 cm; Wt 84.1 kg
[~2024-08-26 06:00] MED LIST changes: +CEPHALEXIN500 MG PO; +HYDROCODON-ACE1 EA10 PO; +LACTATED RINGER'S 1,000 ML IV SCH
[2024-08-26 06:19] VITALS: BP 128/84
--- NOTE | 2024-08-26 06:27 | NUR ---
NO ONE WITH PT. COMFORTABLE. TO BE CALLED.
[2024-08-26] MEDS ORDERED: LIDOCAINE 1% W/ EPI 1:200,000 30 ML SDV ONE (06:43)
[2024-08-26] MEDS ORDERED: BUPIVACAINE HCL 0.25% 50 ML MDV ONE (06:43)
[2024-08-26] MEDS ORDERED: IBLOOD GLUCOSE TEST STRIP 1 EA TEST VI PRN ×2 (07:00→08:45)
[2024-08-26] MEDS ORDERED: LIDOCAINE HCL 1% 5 ML SDV INJ ONE (07:00)
[2024-08-26] MEDS ORDERED: CEFAZOLIN SODIUM 2 GM/20 ML SYR IV SCH (07:00)
[2024-08-26] MEDS ORDERED: ENOXAPARIN SODIUM 40 MG/0.4 ML SYR SUB-Q SCH (07:00)
[2024-08-26] MEDS ORDERED: fentaNYL citrate 100 MCG/2 ML VIAL ONE (07:28)
[2024-08-26] MEDS ORDERED: LIDOCAINE HCL 2% 5 ML SDV ONE (07:28)
[2024-08-26] MEDS ORDERED: MAGNESIUM SULFATE 1 GM/2 ML VIAL ONE (07:28)
[2024-08-26] MEDS ORDERED: propofoL 200 MG/20 ML VIAL ONE (07:28)
[2024-08-26] MEDS ORDERED: ROCURONIUM BROMIDE 50 MG/5 ML SYR ONE (07:28)
[2024-08-26] MEDS ORDERED: KETAMINE in NS 50 MG/5 ML SYR ONE (07:28)
[2024-08-26] MEDS ORDERED: ondansetron HCL 4 MG/2 ML VIAL ONE (07:28)
[2024-08-26] MEDS ORDERED: DEXAMETHASONE SOD PHOS 4 MG/ML VIAL ONE (07:28)
[2024-08-26] MEDS ORDERED: dexmedeTOMIDine HCl 200 MCG/2 ML VIAL ONE (07:28)
[2024-08-26] MEDS ORDERED: ACETAMINOPHEN 1,000 MG/100 ML VIAL ONE (07:29)
[2024-08-26] MEDS ORDERED: LIDOCAINE HCL 4% 5 ML AMP ONE (07:30)
[2024-08-26] MEDS ORDERED: ePHEDrine sulfate 50 MG/ML AMP ONE (08:06)
[2024-08-26] MEDS ORDERED: droPERidol 5 MG/2 ML VIAL IV PRN (08:45)
[2024-08-26] MEDS ORDERED: NALOXONE HCL 0.4 MG SYR IV PRN ×2 (08:45→10:00)
[2024-08-26] MEDS ORDERED: fentaNYL citrate 50 MCG/ML SDV IV PRN (08:45)
[2024-08-26] MEDS ORDERED: KETOROLAC TROMETHAMINE 30 MG/ML VIAL IV PRN (08:45)
[2024-08-26] MEDS ORDERED: ondansetron HCL 4 MG/2 ML VIAL IV PRN ×2 (08:45→10:00)
[2024-08-26] MEDS ORDERED: SEVOFLURANE 250 ML BTL INH ONE (08:48)
[2024-08-26] MEDS ORDERED: SODIUM CHLORIDE 0.9% 20 ML IV ONE (08:58)
[2024-08-26] MEDS ORDERED: SUGAMMADEX SODIUM 200 MG/2 ML ML ONE (09:26)
[2024-08-26] MEDS ORDERED: PROCHLORPERAZINE EDISYLATE 10 MG/2 ML VIAL IV PRN (10:00)
[2024-08-26] MEDS ORDERED: HYDROmorphone HCL 1 MG/ML SYR IV PRN (10:00)
--- NOTE | 2024-08-26 10:28 | NUR ---
08/26/24 1028 Marialuisa Sweeney 0945- PT ARRIVES TO THE PACU WITH AN ORAL AIRWAY IN PLACE AND 6L OF O2 VIA MASK. PT IS NON REACTIVE TO VERBAL AND TACTILE STIMULI. BREATHING IS EVEN AND UNLABORED. ABDOMEN IS SOFT AND NONDISTENDED. BOTH SURGICAL SITES ARE CLEAN DRY AND INTACT. LR INFUSING IN R FOREARM. MONITORS PUT IN PLACE. PT IS IN SEMIFOWLERS POSITION. ICE PACKS PUT ON SITES AND PILLOW GIVEN FOR SPLINTING. 1000- PT IS STILL NON REACTIVE TO STIMULI. VSS. 1011- PT OPENS EYES TO TACTILE STIMULI AND ABLE TO FOLLOW COMMANDS TO OPEN HIS MOUTH. ORAL AIRWAY REMOVED. PT EASILY FALLS BACK TO SLEEP WITH SOME SNORING NOTED. 1019- PT WAKES TO VERBAL STIMULI AND DENIES PAIN AND NAUSEA. PT ORIENTED TO PACU. 1026- O2 TURNED OFF AND REMOVED.
[2024-08-26 10:41] VITALS: BP 134/81
[2024-08-26 10:43] VITALS: BP 134/81
--- NOTE | 2024-08-26 11:27 | NUR ---
comfortable. denies any needs. drinking juice.
--- NOTE | 2024-08-26 11:44 | OR ---
[facility] [address] [place], [place] [address] Signed DATE OF OPERATION: 08/26/2024 SURGEON: Miriam Avendano MD PREOPERATIVE DIAGNOSIS: Reducible bilateral inguinal hernias. POSTOPERATIVE DIAGNOSIS: Reducible bilateral direct moderate-sized inguinal hernias. PROCEDURE: Bilateral Bassini inguinal herniorrhaphy. ESTIMATED BLOOD LOSS: None. 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 He worked for 41 years. He retired about a year and a half ago. He has been remodeling his home mainly by himself. It is quite heavy work. He said he has had a left inguinal hernia for quite a few years. He is now noticing a bulge in the right groin. He mentioned it to his primary care provider. He was asked to see me as a local general surgeon. In the office, he certainly has moderate sized but reducible bilateral inguinal hernias. I had given him our brochure on hernias. We looked at it page by page. I circled the sections relevant to him. We reviewed inguinal hernias in detail. We discussed primary suture repair versus mesh repair. He understands expected intraop and postop course. There is risk of surgery including, but not limited to bleeding, infection, scarring, change in contour of skin, damage to the nerves, ischemic orchitis, recurrent hernias and chronic pain. He had expressed understanding and wished to proceed. PROCEDURE IN DETAIL: I met with Darin this morning in our preop area along with our preop nurse. Darin agreed that we were repairing bilateral inguinal hernias. We marked that appropriately. After this, Darin was taken in the operating room and placed in the supine position under general endotracheal tube anesthesia. He was given preoperative antibiotics along with subcutaneous Lovenox. SCDs were utilized. He was prepped and draped in the usual sterile fashion. We made a standard oblique incision over the right groin and carried that down through the tissue bluntly and with the cautery. We opened the external oblique fascia along its length. We elevated the cord structures at the level of pubic Electronically Signed By: MIRIAM AVENDANO MD 08/26/24 1144 PATIENT NAME: DARIN ZHOU OPERATIVE REPORT DATE OF : 57 REPORT #: [id number] PHYSICIAN: MIRIAM AVENDANO MD PCP: KO LOPEZ MD REPORT IS CONFIDENTIAL AND NOT TO BE RELEASED WITHOUT AUTHORIZATION [facility] [address] [place], [place] [address] Signed tubercle with a Clement drain. We could see that he had fat coming through completely splayed out direct space. It was easily reducible. There was no real hernia sac. We examined the cord structures at the level of deep ring on the anteromedial side. There was no indirect component. He has a compliant abdomen and we had plenty of room to bring the conjoined tendon over to the ilioinguinal ligament. We therefore chose to use the Bassini repair to close the myopectineal orifice. We used interrupted #1 Prolene suture starting at the pubic tubercle, worked our way up to the deep ring. The tip of my finger could just fit into the deep ring. We made a short 2.5 cm relaxing incision over the rectus muscle just slightly above the pubic tubercle. In this way, there was no tension whatsoever on the repair. We had protected the ilioinguinal nerve and iliohypogastric nerves throughout the case. The wound was then irrigated and suctioned out until clear. Local anesthetic was injected in the wound. The external oblique fascia was closed over the repair with a running 2-0 PDS suture. We then brought Compa's fascia prep back together with a running 3-0 Monocryl suture. The dermis was reapproximated with interrupted 3-0 subcuticular Monocryl sutures. The skin edges were reapproximated with a running 5-0 fast absorbing plain gut suture. After this, we turned our attention to the left side. We measured out a mirror image incision. We carried that down through the soft tissues with the help of the cautery. External oblique fascia again was opened along its length and developed medially and laterally. We were able to visualize and protect the ilioinguinal iliohypogastric nerves. The cord structures were again elevated at the level of pubic tubercle with the help of the Clement drain. The hernia on the left was the same, only slightly larger. Again, he had plenty of compliance of the abdominal wall, so we again repaired the left side with Bassini technique. We used #1 Prolene interrupted suture starting at the pubic tubercle all the way up to the deep ring to bring the conjoined tendon over the ilioinguinal ligament. And again tip of my finger could just fit into the deep ring. We used about a 3 cm relaxing incision in the midportion of the repair over the rectus muscle. Again, no tension on the repair whatsoever. We then injected local anesthetic. The wound was irrigated and suctioned out until clear. We closed the external oblique fascia over the repair with a running 2-0 PDS suture. We closed Compa's fascia with a running 3-0 Monocryl suture. The dermis was reapproximated with interrupted 3-0 subcuticular Monocryl sutures. The skin edges were reapproximated with a running 5-0 fast absorbing plain gut suture. After this, dry gauze and tape was applied to both incisions. Darin was awakened from his anesthesia, extubated in the OR, and taken to recovery room in stable condition. Miriam Avendano MD Electronically Signed By: MIRIAM AVENDANO MD 08/26/24 1144 PATIENT NAME: WINNIEDARINMar yGrace DODGE OPERATIVE REPORT DATE OF : 57 REPORT #: [id number] PHYSICIAN: MIRIAM AVENDANO MD PCP: KO LOPEZ MD REPORT IS CONFIDENTIAL AND NOT TO BE RELEASED WITHOUT AUTHORIZATION [facility] [address] [place] [address] Signed ALB/MODL /[id number] cc: MD Ko Koch MD Copies: MIRIAM AVENDANO MD, MALCOLM MD ~ Electronically Signed By: MIRIAM AVENDANO MD 08/26/24 1144 PATIENT NAME: DARIN ZHOU OPERATIVE REPORT DATE OF : 57 REPORT #: [id number] PHYSICIAN: MIRIAM AVENDANO MD PCP: KO LOPEZ MD REPORT IS CONFIDENTIAL AND NOT TO BE RELEASED WITHOUT AUTHORIZATION
[2024-08-26 11:46] VITALS: BP 135/74
--- NOTE | 2024-08-26 12:23 | NUR ---
AMB HALLWAY ABLE TO VOID 200MLS DARK URINE.
[2024-08-26] MEDS ORDERED: OXYCODONE HCL 5 MG TAB PO PRN (12:45)
--- NOTE | 2024-08-26 12:57 | NUR ---
GOT PAIN MEDICINE FOR 3/10 PAIN AND PT WANTING TO GO HOME. ATE APPLESAUCE PRIOR TO PILL.
--- NOTE | 2024-08-26 13:28 | NUR ---
WAITING FOR TO COME GET HIM. DRESSED SITTING ON BS.
== END 2024-08-26 13:20 | disposition home or self-care (01) ==
LOC: DS 06:00
PROVIDERS: ATTEND Colon & Rectal Surgery
PROC: 0YQA0ZZ Repair Bilateral Inguinal Region, Open Approach (ICD-10-PCS; principal; 2024-08-26 07:30)
DX: K40.20 Bilateral inguinal hernia, without obstruction or gangrene, not specified as recurrent (principal)
CPT/HCPCS: 00830; A9270; J0131; J0690; J1100; J1650; J2003; J2405; J2704; J3010; J3475; J3490; J7121